=== PATIENT | female | born 1985 | race Caucasian/White ===

== ENCOUNTER 2017-08-19 02:32 | Emergency (ER) | END 2017-08-19 05:54 | disposition home or self-care (01) ==

== ENCOUNTER 2017-11-02 22:44 | Emergency (ER) | END 2017-11-03 02:15 | disposition left against medical advice (07) ==

== ENCOUNTER 2018-08-31 01:54 | Emergency (ER) | payer OTHER ==
[~2018-08-31] VITALS: Ht 160 cm; Wt 124.5 kg
[~2018-08-31 01:54] MED LIST: LORA1TAB PO
[2018-08-31 01:56] VITALS: Ht 160 cm; Wt 124.5 kg
[2018-08-31] MEDS ORDERED: ONDANSETRON 4 MG INJ IV STA (02:19)
[2018-08-31] MEDS ORDERED: LIDOCAINE/MYLANTA 40 ML BTL PO STA (02:19)
[2018-08-31] MEDS ORDERED: KETOROLAC 15 MG INJ IV STA (02:19)
[2018-08-31] MEDS ORDERED: BELLADONNA/PHENOBARBITAL TAB PO STA (02:19)
[2018-08-31] MEDS ORDERED: SOD CHLORIDE 0.9% 1,000 ML IV STA (02:19)
--- NOTE | 2018-08-31 02:29 | ERD ---
ER Documentation Chief Complaint Chief Complaint RUQ ab pain just now, throwing up HPI This is a 33-year-old woman complaining of diffuse abdominal cramping and suspected "food poisoning" after eating an old turkey sandwich for lunch today. She has had the pain intermittently throughout the day after lunch and has had multiple episodes of clear nonbloody nonbilious emesis and diarrhea. 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 She denies fevers or chills, no chest pain or shortness of breath, no dysuria, no headache or blurry vision. ROS All systems reviewed and are negative except as per history of present illness. Medications Home Meds Active Scripts Acetaminophen* (Tylophen*) 500 Mg Capsule, 2 CAP PO Q8H PRN for PAIN AND/OR INFLAMMATION, #60 CAP Prov:JOHN MONTE MD 08/31/18 Ondansetron Hcl* (Zofran*) 4 Mg Tablet, 4 MG PO Q8H PRN for NAUSEA AND/OR VOMITING, #30 TAB Prov:JOHN MONTE MD 08/31/18 Ibuprofen* (Motrin*) 600 Mg Tab, 600 MG PO Q8 PRN for PAIN AND/OR INFLAMMATION, #30 TAB Prov:JOHN MONTE MD 08/31/18 Lorazepam* (Lorazepam*) 1 Mg Tablet, 1 MG PO Q8H PRN for ANXIETY, #10 TAB Prov:JOHN VALLECILLO 08/19/17 Allergies Allergies: Coded Allergies: No Known Allergy (Unverified , 08/19/17) PMhx/Soc Hx Alcohol Use: No Hx Substance Use: No Hx Tobacco Use: No FmHx Family History: No diabetes Physical Exam Vitals Vital Signs Date Temp Pulse Resp B/P (MAP) Pulse Ox O2 O2 Flow FiO2 Time Delivery Rate 08/31/18 99.4 73 18 108/54 97 Room Air 02:05 (72) 08/31/18 98.8 100 20 140/76 95 01:56 (97) Physical Exam GENERAL: Well-developed, well-nourished, well-hydrated, mild discomfort, afebril e CARDIAC: Tachycardic and regular no murmurs rubs or gallops LUNGS: Clear bilaterally no wheezing crackles or stridor ABDOMEN: Soft nontender, no guarding, no rigidity, no rebound, no psoas sign no obturator sign. Normoactive bowel sounds SKIN: Warm and dry to touch, no abrasions, contusions, or hematomas, no lacerations, no ecchymosis, no target lesions, and without ulcers EXTREMITIES: No clubbing cyanosis or edema, calves are bilaterally symmetrical, no Homans sign, no popliteal cord sign. Distal pulses equal and bilateral PSYCH: Normal affect without agitation or irritability Result Diagram: 08/31/18 0210 08/31/18 0210 Results 24 hrs Laboratory Tests Test 08/31/18 02:10 08/31/18 02:17 08/31/18 02:21 White Blood Count 16.9 10^3/ul Red Blood Count 5.09 10^6/ul Hemoglobin 13.7 g/dl Hematocrit 41.5 % Mean Corpuscular Volume 81.5 fl Mean Corpuscular Hemoglobin 26.9 pg Mean Corpuscular 33.0 g/dl Hemoglobin Concent Red Cell Distribution Width 12.5 % Platelet Count 258 10^3/UL Mean Platelet Volume 10.4 fl Immature Granulocytes % 0.500 % Neutrophils % 83.8 % Lymphocytes % 10.0 % Monocytes % 5.4 % Eosinophils % 0.1 % Basophils % 0.2 % Nucleated Red Blood Cells % 0.0 /100WBC Immature Granulocytes # 0.080 10^3/ul Neutrophils # 14.1 10^3/ul Lymphocytes # 1.7 10^3/ul Monocytes # 0.9 10^3/ul Eosinophils # 0.0 10^3/ul Basophils # 0.0 10^3/ul Nucleated Red Blood Cells # 0.0 10^3/ul Sodium Level 138 mmol/L Potassium Level 3.9 mmol/L Chloride Level 101 mmol/L Carbon Dioxide Level 27 mmol/L Anion Gap 10 Blood Urea Nitrogen 12 mg/dl Creatinine 0.68 mg/dl Est Glomerular Filtrat Rate mL/min > 60 mL/min Glucose Level 350 mg/dl Calcium Level 9.8 mg/dl Total Bilirubin 0.8 mg/dl Direct Bilirubin 0.00 mg/dl Indirect Bilirubin 0.8 mg/dl Aspartate Amino Transf (AST/SGOT) 60 IU/L Alanine 71 IU/L Aminotransferase (ALT/SGPT) Alkaline Phosphatase 151 IU/L Total Protein 8.1 g/dl Albumin 4.1 g/dl Globulin 4.00 g/dl Albumin/Globulin Ratio 1.02 Lipase 80 U/L Serum HCG, Qualitative NEGATIVE POC Venous Lactate 1.4 mmol/L Bedside Glucose 351 mg/dL Current Medications Medications Dose Sig/Favian Start Time Status Last (Trade) Ordered Route PRN Stop Time Admin Dose Reason Admin Sodium 1,000 ml @ Q1H STAT 08/31/18 DC 08/31/18 Chloride 1,000 mls/hr IV 02:19 02:26 08/31/18 03:18 Ondansetron 4 mg ONCE STAT 08/31/18 DC 08/31/18 HCl (Zofran IV 02:19 02:26 Inj) 08/31/18 02:20 40 ml ONCE STAT 08/31/18 DC 08/31/18 Miscellaneous PO 02:19 02:26 Medication 08/31/18 02:20 (Gi Cocktail (2)) Belladonna/ 2 tab ONCE STAT 08/31/18 DC 08/31/18 Phenobarbital PO 02:19 02:26 () 08/31/18 02:20 Ketorolac 15 mg ONCE STAT 08/31/18 DC 08/31/18 Tromethamine IV 02:19 02:55 (Toradol) 08/31/18 02:20 Procedures/MDM IV line was established patient was placed on equipment monitor phototypesetting rhythm strip revealed tachycardic at 100 bpm with upright P and T waves. Patient was afebrile I administered 1 L normal saline IV, Toradol 15 mg IV, Zofran 4 mg IV, GI cocktail p.o. CBC reveals a leukocytosis of 17 consistent with vomiting, electrolytes were unremarkable, liver function tests were normal. Patient refused to provide a urine sample despite multiple attempts by me and the nurse Patient's abdominal pain resolved and vital signs are normal. She had no episodes of vomiting or diarrhea while here in the ER Differential diagnoses considered, included but not limited to acute coronary syndrome, pulmonary embolism, aortic dissection, abdominal aortic aneurysm, sepsis, stroke, meningitis, encephalitis, pneumonia, appendicitis, cholecystitis, bowel obstruction, pyelonephritis, nephrolithiasis, cystitis, as well as metabolic, hematologic, and electrolyte abnormalities. As well as abscess, cellulitis, fractures, and dislocations. Patient feels much better at this time, and vital signs are normal, symptoms have improved. I did give strict instructions to return to the ED if symptoms continue or worsen, patient will otherwise follow-up with primary care physician. Patient understood instructions and agreed to plan. Disclaimer: Inadvertent spelling and grammatical errors are likely due to EHR/dictation software use and do not reflect on the overall quality of patient care. Also, please note that the electronic time recorded on this note does not necessarily reflect the actual time of the patient encounter. Departure Diagnosis: Primary Impression: Abdominal pain Abdominal location: generalized Qualified Codes: R10.84 - Generalized abdominal pain Additional Impression: Vomiting and diarrhea Condition: JOHN Valenzuela MD Aug 31, 2018 02:29
[2018-08-31] MEDS ORDERED: ONDA4TAB8 PO (03:59)
[2018-08-31] MEDS ORDERED: IBUP-1542 PO (03:59)
[2018-08-31] MEDS ORDERED: ACET500C5 PO (04:00)
[2018-08-31 04:15] VITALS: BP 103/66; PULSE 88; RESP 18
== END 2018-08-31 04:38 | disposition home or self-care (01) ==
LOC: E/R 01:54
DX: R10.84 Generalized abdominal pain (principal); R11.10 Vomiting, unspecified; R19.7 Diarrhea, unspecified
CPT/HCPCS: 36415; 80053; 82962; 83605; 83690; 84703; 85025; 96374; 96375; 99284; J1885; J2405; J7030